=== PATIENT | male | born 1960 | race Caucasian/White ===

== ENCOUNTER 2019-11-03 23:13 | Emergency (ER) | payer MEDICAID ==
[~2019-11-03] VITALS: Ht 172.7 cm; Wt 59.0 kg
[~2019-11-03 23:13] MED LIST: LEVO500T2 MT
[2019-11-04] MEDS ORDERED: IBUPROFEN 600MG TABLET PO STA (01:41)
[2019-11-04 01:55] VITALS: BP 166/81
[2019-11-04 02:33] LABS: CHLORIDE 108 mEq/L (98-107)
[2019-11-04 02:36] LABS: ETHANOL BLOOD < 10 mg/dL; HEMATOCRIT. 35.3 % (42.0-52.0); MEAN CORPUSCULAR HEMOGLOBIN 35.1 pg (28.0-32.0); MEAN CORPUSCULAR VOLUME 103.3 fL (80.0-94.0); PLATELET 163 x1000/uL (130-400); RED BLOOD CELL COUNT 3.42 mill/uL (4.7-6.1); RED CELL DISTRIBUTION WIDTH 14.4 % (11.6-14.6)
[2019-11-04 05:52] LABS: PLATELET ESTIMATE NORMAL
== END 2019-11-04 06:00 | disposition home or self-care (01) ==
LOC: ER 23:46
DX: M54.5 Low back pain (principal); H10.89 Other conjunctivitis; E11.9 Type 2 diabetes mellitus without complications
CPT/HCPCS: 36415; 80048; 80320; 85025; 99283; G0480

== ENCOUNTER 2019-11-05 14:09 | Emergency (ER) | payer MEDICAID ==
[~2019-11-05] VITALS: Ht 172.7 cm; Wt 71.0 kg
[2019-11-05 16:49] LABS: BASOPHILS % 1.2 % (0.0-2.0); EOSINOPHILS % 5.4 % (0.0-5.0); HEMATOCRIT. 32.8 % (42.0-52.0); HEMOGLOBIN. 11.1 g/dL (14.0-18.0); LYMPHOCYTES % 21.2 % (20.0-50.0); MEAN CORPUSCULAR HEMOGLOBIN 35.4 pg (28.0-32.0); MEAN CORPUSCULAR VOLUME 104.2 fL (80.0-94.0); MEAN PLATELET VOLUME 11.6 fl (7.4-10.4); MONOCYTES % 11.7 % (2.0-8.0); NEUTROPHILS % 60.5 % (40.0-76.0); PLATELET 132 x1000/uL (130-400); RED BLOOD CELL COUNT 3.14 mill/uL (4.7-6.1); RED CELL DISTRIBUTION WIDTH 14.5 % (11.6-14.6)
[2019-11-05 16:59] LABS: CHLORIDE 113 mEq/L (98-107)
[2019-11-05 17:04] LABS: ETHANOL BLOOD < 10 mg/dL
[2019-11-05 17:11] LABS: CLARITY URINE CLEAR (CLEAR); COLOR URINE YELLOW (YELLOW); KETONES URINE NEGATIVE (NEGATIVE); LEUKOCYTE ESTERASE URINE 1+ (NEGATIVE); NITRITE URINE NEGATIVE (NEGATIVE); OCCULT BLOOD URINE NEGATIVE (NEGATIVE); PROTEIN URINE NEGATIVE (NEGATIVE); SPECIFIC GRAVITY URINE 1.021 (1.005-1.030)
[2019-11-05 17:17] LABS: *AMPHETAMINES SCREEN URINE PRESUMTIVE POSITIVE (NEGATIVE); *BARBITURATES SCREEN URINE NEGATIVE (NEGATIVE); *BENZODIAZEPINES SCREEN URINE NEGATIVE (NEGATIVE); *COCAINE SCREEN URINE NEGATIVE (NEGATIVE); METHADONE URINE SCREEN NEGATIVE (NEGATIVE); OPIATES URINE SCREEN NEGATIVE (NEGATIVE)
[2019-11-05 17:18] LABS: CANNABINOID URINE SCREEN NEGATIVE (NEGATIVE); PHENCYCLIDINE URINE SCREEN NEGATIVE (NEGATIVE)
[2019-11-05 17:25] VITALS: BP 115/62
== END 2019-11-05 18:08 | disposition home or self-care (01) ==
LOC: ER 14:24
DX: R44.0 Auditory hallucinations (principal); R44.1 Visual hallucinations; N17.0 Acute kidney failure with tubular necrosis; E86.0 Dehydration; R73.9 Hyperglycemia, unspecified; E87.8 Other disorders of electrolyte and fluid balance, not elsewhere classified; R74.0 Nonspecific elevation of levels of transaminase and lactic acid dehydrogenase [LDH]; D53.9 Nutritional anemia, unspecified; E88.09 Other disorders of plasma-protein metabolism, not elsewhere classified; R46.0 Very low level of personal hygiene; E46 Unspecified protein-calorie malnutrition; F15.10 Other stimulant abuse, uncomplicated; Z59.0 Homelessness; F12.90 Cannabis use, unspecified, uncomplicated; F16.10 Hallucinogen abuse, uncomplicated; Z68.23 Body mass index [BMI] 23.0-23.9, adult
CPT/HCPCS: 36415; 80053; 80305; 80320; 81003; 82962; 85025; 99283; G0480

== ENCOUNTER 2020-08-20 12:31 | Inpatient (IN) | payer MEDICAID ==
[~2020-08-20] VITALS: Ht 172.7 cm; Wt 64.9 kg
[2020-08-20] MEDS ORDERED: SODIUM CHLORIDE 0.9% 1,000 ML IV ONE (13:00)
[2020-08-20 13:08] LABS: BASOPHILS % 1.4 % (0.0-2.0); EOSINOPHILS % 4.6 % (0.0-5.0); HEMOGLOBIN. 7.4 g/dL (14.0-18.0); LYMPHOCYTES % 19.4 % (20.0-50.0); MEAN CORPUSCULAR HEMOGLOBIN 35.3 pg (28.0-32.0); MEAN CORPUSCULAR VOLUME 105.5 fL (80.0-94.0); MEAN PLATELET VOLUME 11.8 fl (7.4-10.4); MONOCYTES % 11.9 % (2.0-8.0); NEUTROPHILS % 62.7 % (40.0-76.0); PLATELET 144 x1000/uL (130-400); RED BLOOD CELL COUNT 2.09 mill/uL (4.7-6.1); RED CELL DISTRIBUTION WIDTH 14.8 % (11.6-14.6)
[2020-08-20 13:16] LABS: CHLORIDE 109 mEq/L (98-107)
[2020-08-20 13:20] LABS: INR 1.2; PARTIAL THROMBOPLASTIN TIME 26.2 sec (23.4-31.0); PROTHROMBIN TIME 12.5 sec (9.6-11.0)
[2020-08-20] MEDS ORDERED: LACTULOSE 20G/30ML UDC PO ONE (14:30)
[2020-08-20] MEDS ORDERED: IPRATROPIUM/ALBUTEROL 0.5-3(2.5)MG/3ML NEB HHN PRN (16:30)
[2020-08-20] MEDS ORDERED: MORPHINE SULFATE 2 MG/ML CPJ (NOT FOR IM USE) IV PRN (16:30)
[2020-08-20] MEDS ORDERED: DIPHENHYDRAMINE 50MG/ML VIAL IV PRN (16:30)
[2020-08-20] MEDS ORDERED: CLONIDINE 0.1MG TABLET PO PRN (16:30)
[2020-08-20] MEDS ORDERED: ONDANSETRON HCL 4MG/2ML INJ IV PRN (16:30)
[2020-08-20] MEDS ORDERED: ASPIRIN 325MG EC TABLET PO ONE (17:00)
[2020-08-20] MEDS ORDERED: OCTREOTIDE ACETATE 50 MCG/ML 1ML IV SCH (18:30)
[2020-08-20] MEDS ORDERED: OCTREOTIDE 1,000 MCG in SODIUM CHLORIDE 0.9% 98 ML IV SCH (18:30)
[2020-08-20] MEDS: OCTREOTIDE 1,000 MCG in SODIUM CHLORIDE 0.9% 98 ML IV SCH (19:35)
[2020-08-20] MEDS: PANTOPRAZOLE SODIUM 40 MG/VIAL IV SCH (19:50)
[2020-08-20] MEDS: METOPROLOL TARTRATE 25MG TABLET PO SCH (19:57)
[2020-08-20 21:48] VITALS: BP 108/63
[2020-08-20] MEDS: LACTULOSE 20G/30ML UDC PO SCH (23:10)
[2020-08-20 23:48] VITALS: BP 111/78
[2020-08-21] VITALS (14 sets, daily range): BP systolic 99–139; BP diastolic 51–90
[2020-08-21] MEDS: LACTULOSE 20G/30ML UDC PO SCH ×2 (06:26→13:45)
[2020-08-21] MEDS: METOPROLOL TARTRATE 25MG TABLET PO SCH (08:53)
[2020-08-21] MEDS: PANTOPRAZOLE SODIUM 40 MG/VIAL IV SCH ×2 (08:53→17:35)
[2020-08-21 08:59] LABS: HEMATOCRIT. 22.2 % (42.0-52.0); HEMOGLOBIN. 7.3 g/dL (14.0-18.0); MEAN CORPUSCULAR HEMOGLOBIN 35.2 pg (28.0-32.0); MEAN CORPUSCULAR VOLUME 106.6 fL (80.0-94.0); PLATELET 137 x1000/uL (130-400); RED BLOOD CELL COUNT 2.08 mill/uL (4.7-6.1); RED CELL DISTRIBUTION WIDTH 14.7 % (11.6-14.6)
[2020-08-21 09:06] LABS: CHLORIDE 110 mEq/L (98-107)
[2020-08-21] MEDS ORDERED: DEXTROSE 50% WATER 50ML SYRINGE IV PRN (10:45)
[2020-08-21] MEDS: BLOOD SUGAR DIAGNOSTIC STRIP TEST SCH ×2 (12:40→17:07)
[2020-08-21] MEDS: INSULIN LISPRO 100 UNITS/ML SUBCUT SCH ×2 (12:40→17:37)
[2020-08-21 14:17] LABS: PLATELET ESTIMATE NORMAL
[2020-08-21 15:57] LABS: TOTAL IRON BINDING CAPACITY 351 ug/dL (250-450)
[2020-08-21 16:20] LABS: FERRITIN 33 ng/mL (22-322)
[2020-08-21 16:28] LABS: VITAMIN B12 SERUM 1351 pg/mL (211-911)
[2020-08-21 16:31] LABS: HEPATITIS B SURFACE ANTIGEN NEGATIVE
[2020-08-21 17:00] LABS: HEPATITIS A AB IGM NEGATIVE (NEGATIVE)
[2020-08-21] MEDS: OCTREOTIDE 1,000 MCG in SODIUM CHLORIDE 0.9% 98 ML IV SCH (17:50)
[2020-08-21 20:15] LABS: HEMATOCRIT 25.5 % (42.0-52.0); HEMOGLOBIN 8.7 g/dL (14.0-18.0)
[2020-08-21 20:25] LABS: INR 1.2
[2020-09-05] MEDS ORDERED: OMEP40CA12 MT (12:54)
[2020-09-05] MEDS ORDERED: PROP10TA10 PO (12:54)
== END 2020-08-21 22:06 | disposition left against medical advice (07) | DRG 242 ==
LOC: ER 12:31 → 5EST 16:25 → ENRESERV 21:01
PROVIDERS: ADMIT Internal Medicine; ATTEND Internal Medicine
PROC: 30233N1 Transfusion of Nonautologous Red Blood Cells into Peripheral Vein, Percutaneous Approach (ICD-10-PCS; principal; 2020-08-21)
DX: I85.01 Esophageal varices with bleeding (principal); I21.4 Non-ST elevation (NSTEMI) myocardial infarction; G92 Toxic encephalopathy; E72.20 Disorder of urea cycle metabolism, unspecified; K76.6 Portal hypertension; K92.2 Gastrointestinal hemorrhage, unspecified; E88.09 Other disorders of plasma-protein metabolism, not elsewhere classified; R16.1 Splenomegaly, not elsewhere classified; K21.9 Gastro-esophageal reflux disease without esophagitis; K70.31 Alcoholic cirrhosis of liver with ascites; E11.9 Type 2 diabetes mellitus without complications; D53.9 Nutritional anemia, unspecified; B19.20 Unspecified viral hepatitis C without hepatic coma; F15.10 Other stimulant abuse, uncomplicated; K72.90 Hepatic failure, unspecified without coma; I25.10 Atherosclerotic heart disease of native coronary artery without angina pectoris; K80.20 Calculus of gallbladder without cholecystitis without obstruction; I10 Essential (primary) hypertension; F10.20 Alcohol dependence, uncomplicated; Z86.61 Personal history of infections of the central nervous system; Z20.822 Contact with and (suspected) exposure to COVID-19
CPT/HCPCS: 36415; 71045; 74176; 76700; 80053; 82140; 82270; 82607; 82728; 82746; 82962; 83036; 83540; 83550; 84443; 84484; 85014; 85018; 85025; 85049; 85384; 86705; 86709; 86803; 86850; 86900; 86920; 87340; 87426; 93005; 93306; 93970; 99291; C9113; J1815; J2354; J2405; J7030; J7040; J7050; P9016